=== PATIENT | female | born 1955 | race Hispanic/Latino ===

== ENCOUNTER → 2018-04-25 | Outpatient (CLI) | payer OTHER ==
--- NOTE | 2018-04-25 16:10 | Diagnostic Imaging Report ---
#[id number] - MGDXBIL #BILATERAL DIGITAL DIAGNOSTIC MAMMOGRAM WITH CAD: 04/25/2018 No prior exams were available for comparison. Current study contains 7 films. The tissue of both breasts is predominantly fatty. Current study was also evaluated with a Computer Aided Detection (CAD) system. There is an irregular high density mass measuring 4.7 cm in its greatest dimension in the left breast at 10 o'clock middle depth. This mass is palpable and underneath a palpable mass marker. In addition, enlarged high density lymph nodes in the axilla are present bilaterally-larger and more prominent on the left side. Largest on the left measures 1.8 x 2.5 cm. Largest on the right measures 1.3 x 1.6 cm. No other significant masses, calcifications, or other findings are seen in either breast. IMPRESSION: HIGHLY SUGGESTIVE OF MALIGNANCY The irregular high density mass in the left breast is highly suggestive of malignancy. An ultrasound is recommended. A phone call was made to the physician's office and the case discussed with Chio More. The patient will be contacted by the Mammography Department to schedule this appointment. Deep Prince Jr., D.O. cw/:04/25/2018 13:30:18 Court Collections Officer: Anna OREILLY)(Laci), [facility] letter sent: Biopsy Required Mammogram BI-RADS: 5 Highly suggestive of malignancy
--- NOTE | 2018-04-25 16:10 | Diagnostic Imaging Report ---
#[id number] - USBRELIMLT ULTRASOUND OF THE LEFT BREAST : 04/25/2018 Comparison is made to exam dated: 04/25/2018 mammogram - [facility]. Color flow and real-time ultrasound were performed on the left breast. -There is an irregular hypechoic mass with marked lobulations measuring 4.3 x 2.0 x 2.4 cm. This mass is highly suspicious to represent a cancer and corresponds with the palpable mass on physical exam. An ultrasound guided biopsy is recommended. -In addition, there are enlarged left axillary lymph nodes with the largest measuring 1.7 x 1.2 x 2.1 cm. IMPRESSION: HIGHLY SUGGESTIVE OF MALIGNANCY - FOLLOW-UP RECOMMENDED Irregular mass in the left breast is highly suspicious for cancer. Ultrasound guided biopsy is recommended. Case was discusse with Chio More in Dr. Vidales's office. The patient was notified of the need for a biopsy. Deep Prince Jr., D.O. cw/:04/25/2018 13:50:31 Brazing Machine Operator Automatic: CONI STRATTON, [facility] letter sent: Biopsy Required Ultrasound BI-RADS: 5 Highly suggestive of malignancy
== END ==
LOC: MAMMO 09:32
PROVIDERS: ATTEND Family Medicine
DX: N63.20 Unspecified lump in the left breast, unspecified quadrant (principal)
CPT/HCPCS: 77066

== ENCOUNTER → 2018-05-06 | Outpatient (CLI) | payer OTHER ==
--- NOTE | 2018-05-07 08:56 | Diagnostic Imaging Report ---
#[id number] - [id number] ULTRASOUND GUIDED BIOPSY: 05/06/2018 PATIENT CONSENT: According to [facility] requirements, a time out was performed, correct site was localized and the patient was consented. PROCEDURE DESCRIPTION: Using full barrier sterile technique, 1% Lidocaine local anesthesia, and real time ultrasound guidance, the mass at 11 o.clock position in the left breast was biopsied using a 14 ga core device. A total of 10 biopsies were performed. Specimens were submitted for histology. A micromarker was placed at the biopsy site for future reference. A sterile bandage was applied at the entry site. The patient was sent for a post biopsy mammogram with no immediate complications noted. Correlation is made to exams dated: 04/25/2018 ultrasound and 04/25/2018 mammogram - [facility]. IMPRESSION: ULTRASOUND GUIDED BIOPSY Follow-up with ACR/ACS guidelines. Deep anthony/rhonda:05/06/2018 12:27:43 Manufacturers Service Representative: PAGE CARRION RDMS, [facility] [id number]
--- NOTE | 2018-05-07 08:56 | Diagnostic Imaging Report ---
#[id number] - MGDXLT #UNILATERAL LEFT DIGITAL DIAGNOSTIC MAMMOGRAM: 05/06/2018 Comparison is made to exams dated: 05/06/2018 ultrasound biopsy and 04/25/2018 ultrasound - [facility]. Current study contains 2 films. The tissue of the left breast is predominantly fatty. Biopsy clip present within the high density mass. No significant masses, calcifications, or other findings are seen in the breast. IMPRESSION: HIGHLY SUGGESTIVE OF MALIGNANCY Follow-up post biopsy. Deep Prince Jr., D.O. cw/:05/06/2018 13:01:24 Measuring Clerk: Anna Cook RT(R)(M), [facility] Mammogram BI-RADS: 5 Highly suggestive of malignancy
== END ==
LOC: US 08:21
PROVIDERS: ATTEND Family Medicine
DX: N63.20 Unspecified lump in the left breast, unspecified quadrant (principal)
CPT/HCPCS: 88305; A4648

== ENCOUNTER → 2018-10-22 | Outpatient (CLI) | payer OTHER ==
--- NOTE | 2018-10-23 09:14 | Diagnostic Imaging Report ---
#[id number] - USBRECOMLT ULTRASOUND OF THE LEFT BREAST : 10/22/2018 Comparison is made to exams dated: 05/06/2018 mammogram, 05/06/2018 ultrasound biopsy and 04/25/2018 ultrasound - [facility]. Color flow and real-time ultrasound were performed on the entire left breast with scanning in all four quadrants, retroareolar region and the left axilla. -The known left breast mass/cancer at the 10-11 o'clock position shows little interval change now measuring 4.0 x 1.8 x 3.2 cm (previously measured 4.3 x 2.0 x 2.4 cm). -Lymph nodes in the left axilla measure 1.6 x 1.0 x 1.2 cm and 1.3 x 0.8 x 0.9 cm. The largest previously measured 1.7 x 1.2 x 2.1 cm. IMPRESSION: KNOWN BIOPSY PROVEN MALIGNANCY Little interval change in the size of the primary breast mass or axillary nodes. Follow-up with ACR/ACS guidelines. Deep Prince Jr., D.O. cw/:10/22/2018 13:14:42 Controller Coal [employer]: Sheng Licona RDMS, [facility] Ultrasound BI-RADS: 6 Known biopsy proven malignancy
== END ==
LOC: US 08:26
PROVIDERS: ATTEND Internal Medicine
DX: C50.212 Malignant neoplasm of upper-inner quadrant of left female breast (principal)

== ENCOUNTER 2019-05-08 15:15 | Emergency (ER) | payer OTHER ==
[~2019-05-08] VITALS: Ht 149.9 cm; Wt 87.1 kg
--- OUTSIDE RECORDS SUMMARY | 2019-05-08 15:18 | XMS REPORT | Clinical Summary ---
Author Author ИВАН [facility] Address Unknown Phone Unavailable Care Team Providers Care Manager Restaurant Name Role Phone PCP Unavailable Allergies No Known Allergies Medications End Date Status Medication Sig Dispensed Refills Start Date Active atorvastatin (LIPITOR) 10 Take 10 mg by 0 MG tablet mouth daily. Active metFORMIN (GLUCOPHAGE) Take 1,000 mg 0 1000 MG tablet by mouth 2 (two) times daily with breakfast and dinner. Active Problems Not on file Encounters Care Team Description Date Type Specialty Loyd Cisse MD Cough (Primary Dx) 04/29/2019 Outside Orders Radiology Loyd Cisse MD Cough 04/17/2019 Hospital Radiology Encounter System, Provider Not In Cough (Primary Dx) 04/17/2019 Outside Orders Radiology Loyd Cisse MD Malignant neoplasm of upper-inner quadrant of left female breast, unspecified estrogen receptor status (HCC) 04/01/2019 Hospital Cardiology Encounter Loyd Cisse MD Malignant neoplasm of upper-inner quadrant of left female breast, unspecified estrogen receptor status (HCC) 04/01/2019 Hospital Radiology Encounter Loyd Cisse MD Malignant neoplasm of upper-inner quadrant of left female breast, unspecified estrogen receptor status (HCC) (Primary Dx) 03/26/2019 Outside Orders Central Scheduling Mile Valdez MD Malignant neoplasm of female breast, unspecified estrogen receptor status, unspecified laterality, unspecified site of breast (HCC) 09/01/2018 Hospital Radiology Encounter Mile Valdez MD Malignant neoplasm of female breast, unspecified estrogen receptor status, unspecified laterality, unspecified site of breast (HCC) 09/01/2018 Hospital Radiology Encounter Mile Valdez MD Malignant neoplasm of female breast, unspecified estrogen receptor status, unspecified laterality, unspecified site of breast (HCC) (Primary Dx) 08/27/2018 Outside Orders Radiology after 05/07/2018 Social History Date Tobacco Use Types Packs/Day Years Used Never Smoker Alcohol Use Drinks/Week oz/Week Comments No Alcohol Habits Answer Date Recorded How often do you have a drink containing alcohol? Never 04/01/2019 How many drinks containing alcohol do you have on Not asked a typical day when you are drinking? How often do you have six or more drinks on one Not asked occasion? Sex Assigned at Date Recorded Not on file Industry Job Start Date Occupation Not on file Not on file Not on file Travel End Travel History Travel Start No recent travel history available. Last Filed Vital Signs Time Taken Vital Sign Reading 04/01/2019 11:52 AM CDT Blood Pressure 115/56 04/01/2019 11:52 AM CDT Pulse 79 04/01/2019 11:52 AM CDT Temperature 37 C (98.6 F) 04/01/2019 11:52 AM CDT Respiratory Rate 12 04/01/2019 11:52 AM CDT Oxygen Saturation 95% - Inhaled Oxygen - Concentration 04/01/2019 8:37 AM CDT Weight 93.4 kg (206 lb) - Height - - Body Mass Index - Plan of Treatment Not on file Procedures Comments Procedure Name Priority Date/Time Associated Diagnosis XR CHEST 2 VIEWS Routine 04/17/2019 Cough 3:25 PM CDT ECHOCARDIOGRAM REPORT - 04/01/2019 SCAN 9:23 PM CDT 2D ECHO W/ DOPPLER Routine 04/01/2019 Malignant neoplasm of (CW/PW/COLOR) 1:40 PM CDT upper-inner quadrant of left female breast, unspecified estrogen receptor status (HCC) IR CV ACCESS FLUORO Routine 04/01/2019 Malignant neoplasm of 11:29 AM CDT upper-inner quadrant of left female breast, unspecified estrogen receptor status (HCC) CBC W/PLT COUNT & AUTO Routine 04/01/2019 DIFFERENTIAL 7:53 AM CDT CBC W/PLT COUNT & AUTO Routine 04/01/2019 DIFFERENTIAL 7:53 AM CDT APTT Routine 04/01/2019 7:53 AM CDT PROTHROMBIN TIME/INR Routine 04/01/2019 7:[address] CHEST WITH IV CONTRAST Routine 09/01/2018 Malignant neoplasm of 10:55 AM ELECTROPLATING TECHNICIAN female breast, unspecified estrogen receptor status, unspecified laterality, unspecified site of breast (HCC) CT ABDOMEN/PELVIS WITH IV Routine 09/01/2018 Malignant neoplasm of CONTRAST 10:55 AM ELECTROPLATING TECHNICIAN female breast, unspecified estrogen receptor status, unspecified laterality, unspecified site of breast (HCC) POCT-CREATININE Routine 09/01/2018 10:36 AM ELECTROPLATING TECHNICIAN after 05/07/2018 Results * XR chest 2 views (04/17/2019 3:25 PM CDT) Specimen Narrative Performed At FINAL REPORT [facility] EXAM: Frontal and lateral chest radiograph HISTORY PROVIDED: R05 COMPARISON: None available IMPRESSION: There are right greater than left bibasilar opacities, pulmonary vascular congestion, and interstitial opacities which may represent multifocal pneumonia, edema, atelectasis, or a combination of these entities. Blunting of the bilateral costophrenic angle suggests a small amount of pleural fluid versus pleural thickening. The cardiac silhouette is mildly enlarged. The tip of a right IJ Port-A-Cath projects over the SVC. No acute osseous abnormality. Degenerative changes of the spine are noted. The findings were discussed with Coby Aguilar NP via phone at 4:16 PM on 04/17/2019. She told me that she has prescribed antibiotics. Short interval follow-up radiography is recommended after treatment to document improvement/resolution, which we also discussed. Signed: Halima Moe MD Report Verified Date/Time:04/17/2019 16:19:28 Reading Location: [facility] Women Procedure Note Interface, External Ris In - 04/17/2019 4:21 PM CDT FINAL REPORT EXAM: Frontal and lateral chest radiograph HISTORY PROVIDED: R05 COMPARISON: None available IMPRESSION: There are right greater than left bibasilar opacities, pulmonary vascular congestion, and interstitial opacities which may represent multifocal pneumonia, edema, atelectasis, or a combination of these entities. Blunting of the bilateral costophrenic angle suggests a small amount of pleural fluid versus pleural thickening. The cardiac silhouette is mildly enlarged. The tip of a right IJ Port-A-Cath projects over the SVC. No acute osseous abnormality. Degenerative changes of the spine are noted. The findings were discussed with Coby Aguilar NP via phone at 4:16 PM on 04/17/2019. She told me that she has prescribed antibiotics. Short interval follow-up radiography is recommended after treatment to document improvement/resolution, which we also discussed. Signed: Halima Moe MD Report Verified Date/Time: 04/17/2019 16:19:28 Reading Location: [facility] Women Performing Organization Address City/State/Zipcode Phone Number [facility] * ECHOCARDIOGRAM REPORT - SCAN (04/01/2019 9:23 PM CDT) Narrative Performed At * 2D Echo W/Doppler(CW/PW/Color) (04/01/2019 1:40 PM CDT) Ejection Fraction [facility] Specimen Narrative Performed At Transthoracic Echocardiography Report (TTE) [facility] Demographics [facility] Patient Name MARIANO LICEAELIADate of Study 04/01/2019 LIZ [id number] GenderFemale Visit Number [id number] RaceUnkno [id number] Number Number Date of Birth1955 Referring Physician Betito Whitman Age63 year(s) Research Archaeologist Tez Allen MD Fellow Sandor Mcclure MD Procedure Type of Study TTE procedure:2DECHO W DOPPLER(CW/PW/COLOR) (Routine) Indications:History of Cancer. Clinical History HGB 14.5 HCT 43.8 % HX OF LEFT BREAST CANCER Height: 53 inches Weight: 93.44 kg (206 lbs) BSA: 1.73 m^2 BMI: 51.56 kg/m^2 HR: 79 bpm BP: 115/56 mmHg Summary 1. The LV chamber size is normal. . Estimated LVEF is normal (55-60%) . 2. All LV segments contract normally. 3. Grade 1 diastolic dysfunction (impaired relaxation and low-normal LA pressure). 4. Normal RV size and systolic function. 5. Mild aortic regurgitation. 6. Unable to estimate peak systolic PA pressure; inadequate TR velocity signal. Previous Study No prior exam available for comparison. Signature Findings Left Ventricle The left ventricle is chamber size (by vol index) is normal (female - LVED vol - 29-61ml/m2). Normal LV wall thickness. Estimated LVEF by qualitative assessment is normal (55-60%) . All LV wall segments contract normally. Grade 1 diastolic dysfunction (impaired relaxation and low-normal LA pressure). Left AtriumLA size is normal by volume. Right VentricleNormal RV size and systolic function. Right Atrium RA size is normal by volume. Aortic Valve Mild aortic regurgitation. Mild AoV sclerosis without significant stenosis. Mitral Valve Normal MV structure and function. Tricuspid ValveTV structure is normal. Trace tricuspid regurgitation. Unable to estimate peak systolic PA pressure; inadequate TR velocity signal. Pulmonic Valve Normal PV structure. Trace pulmonic regurgitation. AortaAortic root size (SInus of Valsalva diameter) is normal. Proximal ascending aorta size is normal. PericardiumTrivial significant pericardial effusion is visualized. IVC/SVC/PA/PV/PleuralIVC not visualized in this study. Chambers/Structures Left Atrium LA Volume: 31.58 ml LA Area: 14.48 cm^2 LA Vol. Index: 18 ml/m^2 Left Ventricle LVIDd: 4.64 cm LVIDs: 2.59 cm LV Septum Diastolic: 1.12 cm LV PW Diastolic: 1.13 cmLV FS: 44.2 % LVEDV Palma's:77.18 ml LVESV Palma's:31.21 mlLVEDVI: 45 ml/m^2 LVEF Palma's: 59.6 %LVESVI: 18 ml/m^2 LVOT Diameter: 1.89 cm Aorta Ao Root S of Cammie.: 3.12 cmAscending Aorta: 3.52 cm Doppler/Quantitative Measurements Mitral Valve MV Peak E-Wave: 0.75 m/sMV Peak A-Wave: 1.1 m/s E/A Ratio: 0.68 Peak Gradient: 2.26 mmHg Deceleration Time: 202.9 msec MV Patrice. Peak: Tissue Doppler E' Septal Velocity: 0.08 m/sA' Septal Velocity: 0.09 m/s E' Lateral Velocity: 0.09 m/s A' Lateral Velocity: 0.1 m/s E/E': 8.25 Aortic Valve Peak Velocity: 1.78 m/sMean Velocity: 1.12 m/s Peak Gradient: 12.73 mmHgMean Gradient: 6.06 mmHg AV Area (continuity): 2.31 cm^2 AV VTI: 31.53 cm AV DVI: 0.82 LVOT Peak Velocity: 1.37 m/s Peak Gradient: 7.46 mmHg Mean Velocity: 0.76 m/s Mean Gradient: 3.02 mmHg LVOT Diameter: 1.89 cmLVOT VTI: 25.98 cm LVOT Area: 2.81 cm^2LVOT SV:72.85 ml LVOT CO: 5.76 l/min LVOT CI: 3.33 l/min/m^2 Procedure Note Interface, External Ris In - 04/01/2019 4:16 PM CDT Transthoracic Echocardiography Report (TTE) Demographics Patient Name NIRALI LICEA Date of Study 04/01/2019 HILL Gender Female Visit Number [id number] Race Unknown Room Number Number Date of 1955 Referring Physician Betito Whitman Age 63 year(s) Research Archaeologist Tez Allen MD Fellow Sandor Mcclure MD Procedure Type of Study TTE procedure:2DECHO W DOPPLER(CW/PW/COLOR) (Routine) Indications:History of Cancer. Clinical History HGB 14.5 HCT 43.8 % HX OF LEFT BREAST CANCER Height: 53 inches Weight: 93.44 kg (206 lbs) BSA: 1.73 m^2 BMI: 51.56 kg/m^2 HR: 79 bpm BP: 115/56 mmHg Summary 1. The LV chamber size is normal. . Estimated LVEF is normal (55-60%) . 2. All LV segments contract normally. 3. Grade 1 diastolic dysfunction (impaired relaxation and low-normal LA pressure). 4. Normal RV size and systolic function. 5. Mild aortic regurgitation. 6. Unable to estimate peak systolic PA pressure; inadequate TR velocity signal. Previous Study No prior exam available for comparison. Signature Findings Left Ventricle The left ventricle is chamber size (by vol index) is normal (female - LVED vol - 29-61ml/m2). Normal LV wall thickness. Estimated LVEF by qualitative assessment is normal (55-60%) . All LV wall segments contract normally. Grade 1 diastolic dysfunction (impaired relaxation and low-normal LA pressure). Left Atrium LA size is normal by volume. Right Ventricle Normal RV size and systolic function. Right Atrium RA size is normal by volume. Aortic Valve Mild aortic regurgitation. Mild AoV sclerosis without significant stenosis. Mitral Valve Normal MV structure and function. Tricuspid Valve TV structure is normal. Trace tricuspid regurgitation. Unable to estimate peak systolic PA pressure; inadequate TR velocity signal. Pulmonic Valve Normal PV structure. Trace pulmonic regurgitation. Aorta Aortic root size (SInus of Valsalva diameter) is normal. Proximal ascending aorta size is normal. Pericardium Trivial significant pericardial effusion is visualized. IVC/SVC/PA/PV/Pleural IVC not visualized in this study. Chambers/Structures Left Atrium LA Volume: 31.58 ml LA Area: 14.48 cm^2 LA Vol. Index: 18 ml/m^2 Left Ventricle LVIDd: 4.64 cm LVIDs: 2.59 cm LV Septum Diastolic: 1.12 cm LV PW Diastolic: 1.13 cm LV FS: 44.2 % LVEDV Palma's:77.18 ml LVESV Palma's:31.21 ml LVEDVI: 45 ml/m^2 LVEF Palma's: 59.6 % LVESVI: 18 ml/m^2 LVOT Diameter: 1.89 cm Aorta Ao Root S of Cammie.: 3.12 cm Ascending Aorta: 3.52 cm Doppler/Quantitative Measurements Mitral Valve MV Peak E-Wave: 0.75 m/s MV Peak A-Wave: 1.1 m/s E/A Ratio: 0.68 Peak Gradient: 2.26 mmHg Deceleration Time: 202.9 msec MV Patrice. Peak: Tissue Doppler E' Septal Velocity: 0.08 m/s A' Septal Velocity: 0.09 m/s E' Lateral Velocity: 0.09 m/s A' Lateral Velocity: 0.1 m/s E/E': 8.25 Aortic Valve Peak Velocity: 1.78 m/s Mean Velocity: 1.12 m/s Peak Gradient: 12.73 mmHg Mean Gradient: 6.06 mmHg AV Area (continuity): 2.31 cm^2 AV VTI: 31.53 cm AV DVI: 0.82 LVOT Peak Velocity: 1.37 m/s Peak Gradient: 7.46 mmHg Mean Velocity: 0.76 m/s Mean Gradient: 3.02 mmHg LVOT Diameter: 1.89 cm LVOT VTI: 25.98 cm LVOT Area: 2.81 cm^2 LVOT SV:72.85 ml LVOT CO: 5.76 l/min LVOT CI: 3.33 l/min/m^2 Performing Organization Address City/State/[facility] Phone Number [facility] CPACS * IR CV Access Fluoro (04/01/2019 11:29 AM CDT) Specimen Narrative Performed At FINAL REPORT [facility] Right internal jugular chest port insertion History: Left-sided breast cancer. Modality: Sonography and fluoroscopy. Sedation: Moderate sedation was administered. 1 mg of Versed and50 mcg of fentanyl IV was used for moderate sedation monitored under my direction. Total intra-service time of sedation [id number]. The patient's vital signs were monitored throughout the procedure and recorded in the patient's medical record by the nurse. Licensed Occupational Therapist:Ephraim Mcneil MD Net Software Developer:Jeramie Mcgowan (resident). Approach: Right internal jugular vein Estimated blood loss:< 5 cc. Specimen: None. Fluoroscopy Time: 0.5 min. Reference Air Kerma (Ka, r): 5.0 mGy. Technique: Informed written consent was obtained. Discussion of risks, benefits, and alternatives were made with the patient. The patient expressed understanding and agreed to proceed.A universal timeout was performed prior to starting the procedure.All elements maximal sterile barrier technique was utilized for this procedure, including utilization of sterile scrub solution for skin prep, a large sterile sheet to cover the areas of the patient that were not prepped, and hand hygiene, mask, head covering, and sterile gown for performing radiologist and scrub technologist. The skin was anesthetized with 2% lidocaine.Ultrasound evaluation showed a patent and compressible right internal jugular vein, which was punctured under direct real-time ultrasound guidance with a micropuncture needle.An ultrasound image was saved to PACS. A 0.018 inch wire was placed through the needle into the right atrium. A 4 Taiwanese micropuncture sheath was placed and a 0.035 wire was advanced into the IVC. A subcutaneous tunnel and pocket were created in the right anterior chest wall by blunt dissection.The pocket was flushed with antibiotic solution. A 6F Deltech port was placed within the pocket and the catheter brought through the tunnel. The catheter was cut at 24 cm. A peel-away sheath was placed in the right IJ vein and the catheter was advanced through the sheath, with its distal tip terminating in the superior right atrium. The peel-away sheath was removed. The port was flushed and aspirated easily following placement.The skin incision was closed with 3-0 Monocryl and Dermabond. The small jugular incision site was closed using Dermabond.The patient tolerated the procedure well and left the department in the same condition. Results:Spot radiograph of the chest demonstrates the new right IJ Port-A-Cath to lie in the expected position with its tip overlying the superior right atrium. Impression: Successful, uncomplicated placement of a right internal jugular chest port using sonographic and fluoroscopic guidance and conscious sedation. The port is ready for immediate use. Signed: Ephraim Mcneil MD Report Verified Date/Time:04/01/2019 17:59:06 Reading Location: [facility] [id number] Angio Body Reading Room Procedure Note Interface, External Ris In - 04/01/2019 6:01 PM CDT FINAL REPORT Right internal jugular chest port insertion History: Left-sided breast cancer. Modality: Sonography and fluoroscopy. Sedation: Moderate sedation was administered. 1 mg of Versed and 50 mcg of fentanyl IV was used for moderate sedation monitored under my direction. Total intra-service time of sedation was 30 minutes. The patient's vital signs were monitored throughout the procedure and recorded in the patient's medical record by the nurse. Licensed Occupational Therapist: Ephraim Mcneil MD Net Software Developer: Jeramie Mcgowan (resident). Approach: Right internal jugular vein Estimated blood loss: < 5 cc. Specimen: None. Fluoroscopy Time: 0.5 min. Reference Air Kerma (Ka, r): 5.0 mGy. Technique: Informed written consent was obtained. Discussion of risks, benefits, and alternatives were made with the patient. The patient expressed understanding and agreed to proceed. A universal timeout was performed prior to starting the procedure. All elements maximal sterile barrier technique was utilized for this procedure, including utilization of sterile scrub solution for skin prep, a large sterile sheet to cover the areas of the patient that were not prepped, and hand hygiene, mask, head covering, and sterile gown for performing radiologist and scrub technologist. The skin was anesthetized with 2% lidocaine. Ultrasound evaluation showed a patent and compressible right internal jugular vein, which was punctured under direct real-time ultrasound guidance with a micropuncture needle. An ultrasound image was saved to PACS. A 0.018 inch wire was placed through the needle into the right atrium. A 4 Taiwanese micropuncture sheath was placed and a 0.035 wire was advanced into the IVC. A subcutaneous tunnel and pocket were created in the right anterior chest wall by blunt dissection. The pocket was flushed with antibiotic solution. A 6F Deltech port was placed within the pocket and the catheter brought through the tunnel. The catheter was cut at 24 cm. A peel-away sheath was placed in the right IJ vein and the catheter was advanced through the sheath, with its distal tip terminating in the superior right atrium. The peel-away sheath was removed. The port was flushed and aspirated easily following placement. The skin incision was closed with 3-0 Monocryl and Dermabond. The small jugular incision site was closed using Dermabond. The patient tolerated the procedure well and left the department in the same condition. Results: Spot radiograph of the chest demonstrates the new right IJ Port-A-Cath to lie in the expected position with its tip overlying the superior right atrium. Impression: Successful, uncomplicated placement of a right internal jugular chest port using sonographic and fluoroscopic guidance and conscious sedation. The port is ready for immediate use. Signed: Ephraim Mcneil MD Report Verified Date/Time: 04/01/2019 17:59:06 Reading Location: [place] [address] Angio Body Reading Room Performing Organization Address City/State/Zipcode Phone Number [facility] * CBC with platelet count + automated diff (04/01/2019 7:53 AM CDT) WBC 7.8 3.5 - 10.5 K/L [facility] RBC 4.84 3.93 - 5.22 M/L [facility] Hemoglobin 14.5 11.2 - 15.7 GM/DL [facility] Hematocrit 43.8 34.1 - 44.9 % [facility] MCV 90.5 79.4 - 94.8 fL [facility] MCH 30.0 25.6 - 32.2 pg [facility] MCHC 33.1 32.2 - 35.5 GM/DL [facility] RDW 12.5 11.7 - 14.4 % [facility] Platelets 313 150 - 450 K/CU MM [facility] MPV 9.6 9.4 - 12.3 fL [facility] nRBC 0 0 - 0 /100 WBC [facility] % Neutros 66 % [facility] % Lymphs 25 % [facility] % Monos 7 % [facility] % Eos 1 % [facility] % Baso 0 % [facility] # Neutros 5.20 1.56 - 6.13 K/L [facility] # Lymphs 1.95 1.18 - 3.74 K/L [facility] # Monos 0.53 (H) 0.24 - 0.36 K/L [facility] # Eos 0.11 0.04 - 0.36 K/L [facility] # Baso 0.02 0.01 - 0.08 K/L [facility] Immature 0 0 - 1 % [facility] Granulocytes-[facility] Specimen Blood Performing Organization Address City/State/Zipcode Phone Number [place] [phone] * aPTT (04/01/2019 7:53 AM CDT) PTT 28.0 22.5 - 36.0 seconds [facility] Specimen Blood Performing Organization Address City/State/[place] [address] [phone] [place] [address] * Prothrombin time/INR (04/01/2019 7:53 AM CDT) Protime 16.5 (H) 11.9 - 14.2 seconds [facility] INR 1.4 <=5.9 [facility] Specimen Blood Narrative Performed At Effective 02/04/2019: PT Reference Range Change [facility] New: 11.9-14.2Previous: 11.7-14.7 [facility] RECOMMENDED COUMADIN/WARFARIN INR THERAPY RANGES STANDARD DOSE: 2.0-3.0Includes: PROPHYLAXIS for venous thrombosis, systemic embolization; TREATMENT for venous thrombosis and/or pulmonary embolus. HIGH RISK: Target INR is 2.5-3.5 for patients wiht mechanical heart valves. Performing Organization Address City/State/Zipcode Phone Number [facility] [address] [place] [address] MED[address] * CT abdomen/pelvis with IV contrast (09/01/2018 10:55 AM ELECTROPLATING TECHNICIAN) Specimen Narrative Performed At FINAL REPORT [facility] TECHNIQUE: CT of the chest, abdomen, and pelvis WITH intravenous contrast and WITH oral contrast. Dose modulation, iterative reconstruction, and/or weight-based adjustment of the mA/kV was utilized to reduce the radiation dose to as low as reasonably achievable. INDICATION: Breast cancer. COMPARISON: None. FINDINGS: LINES/TUBES: None. LUNGS AND AIRWAYS: The lungs and airways are normal without focal abnormality. PLEURA: The pleural spaces are clear. HEART AND MEDIASTINUM: The visualized thyroid gland is normal. No significant mediastinal, hilar, or axillary lymphadenopathy. A single right axillary lymph node is mildly prominent without significant fat stranding. Biopsy clip adjacent to the left axillary lymph node. The heart and pericardium are within normal limits. HEPATOBILIARY: No focal hepatic lesions. Cholelithiasis in a nondistended gallbladder. The gallbladder wall is mildly thickened. No biliary ductal dilatation. SPLEEN: No splenomegaly. PANCREAS: No focal masses or ductal dilatation. ADRENALS: No adrenal nodules. KIDNEYS/URETERS: No hydronephrosis, stones, or solid mass lesions. PELVIC ORGANS/BLADDER: The endometrium is mildly prominent a 0.8 cm. PERITONEUM/RETROPERITONEUM: No free air or fluid. Small, fat filled periumbilical hernia LYMPH NODES: No lymphadenopathy. VESSELS: Unremarkable. GI TRACT: No distention or wall thickening. The appendix is normal. BONES AND SOFT TISSUES: A left breast mass with a biopsy clip measures 4.3 cm in maximum dimension. A lucent lesion with internal striations within the right T11 vertebral body measures 2.1 cm and is most consistent with an intraosseous hemangioma. Mild degenerative changes of the visualized spine. IMPRESSION: 1.Left breast cancer without metastatic disease in the chest, abdomen, or pelvis. 2.A single right axillary lymph node is mildly prominent, a nonspecific finding. 3.Cholelithiasis without acute cholecystitis. However, due to the thick gallbladder wall, chronic cholecystitis should be considered. 4.The endometrium is mildly thickened at 0.8 cm. Further evaluation with a pelvic ultrasound is recommended. Signed: Cortez Martins MD Report Verified Date/Time:09/01/2018 13:30:00 Reading Location: [facility] C013Y CT Body Reading Room Procedure Note Interface, External Ris In - 09/01/2018 1:32 PM ELECTROPLATING TECHNICIAN FINAL REPORT TECHNIQUE: CT of the chest, abdomen, and pelvis WITH intravenous contrast and WITH oral contrast. Dose modulation, iterative reconstruction, and/or weight-based adjustment of the mA/kV was utilized to reduce the radiation dose to as low as reasonably achievable. INDICATION: Breast cancer. COMPARISON: None. FINDINGS: LINES/TUBES: None. LUNGS AND AIRWAYS: The lungs and airways are normal without focal abnormality. PLEURA: The pleural spaces are clear. HEART AND MEDIASTINUM: The visualized thyroid gland is normal. No significant mediastinal, hilar, or axillary lymphadenopathy. A single right axillary lymph node is mildly prominent without significant fat stranding. Biopsy clip adjacent to the left axillary lymph node. The heart and pericardium are within normal limits. HEPATOBILIARY: No focal hepatic lesions. Cholelithiasis in a nondistended gallbladder. The gallbladder wall is mildly thickened. No biliary ductal dilatation. SPLEEN: No splenomegaly. PANCREAS: No focal masses or ductal dilatation. ADRENALS: No adrenal nodules. KIDNEYS/URETERS: No hydronephrosis, stones, or solid mass lesions. PELVIC ORGANS/BLADDER: The endometrium is mildly prominent a 0.8 cm. PERITONEUM/RETROPERITONEUM: No free air or fluid. Small, fat filled periumbilical hernia LYMPH NODES: No lymphadenopathy. VESSELS: Unremarkable. GI TRACT: No distention or wall thickening. The appendix is normal. BONES AND SOFT TISSUES: A left breast mass with a biopsy clip measures 4.3 cm in maximum dimension. A lucent lesion with internal striations within the right T11 vertebral body measures 2.1 cm and is most consistent with an intraosseous hemangioma. Mild degenerative changes of the visualized spine. IMPRESSION: 1.Left breast cancer without metastatic disease in the chest, abdomen, or pelvis. 2.A single right axillary lymph node is mildly prominent, a nonspecific finding. 3.Cholelithiasis without acute cholecystitis. However, due to the thick gallbladder wall, chronic cholecystitis should be considered. 4.The endometrium is mildly thickened at 0.8 cm. Further evaluation with a pelvic ultrasound is recommended. Signed: Cortez Martins MD Report Verified Date/Time: 09/01/2018 13:30:00 Reading Location: [facility] B1 C013Y [address] Body Reading Room Performing Organization Address City/State/Zipcode Phone Number [employer] * CT chest with IV contrast (09/01/2018 10:55 AM ELECTROPLATING TECHNICIAN) Specimen Narrative Performed At FINAL REPORT [employer] TECHNIQUE: CT of the chest, abdomen, and pelvis WITH intravenous contrast and WITH oral contrast. Dose modulation, iterative reconstruction, and/or weight-based adjustment of the mA/kV was utilized to reduce the radiation dose to as low as reasonably achievable. INDICATION: Breast cancer. COMPARISON: None. FINDINGS: LINES/TUBES: None. LUNGS AND AIRWAYS: The lungs and airways are normal without focal abnormality. PLEURA: The pleural spaces are clear. HEART AND MEDIASTINUM: The visualized thyroid gland is normal. No significant mediastinal, hilar, or axillary lymphadenopathy. A single right axillary lymph node is mildly prominent without significant fat stranding. Biopsy clip adjacent to the left axillary lymph node. The heart and pericardium are within normal limits. HEPATOBILIARY: No focal hepatic lesions. Cholelithiasis in a nondistended gallbladder. The gallbladder wall is mildly thickened. No biliary ductal dilatation. SPLEEN: No splenomegaly. PANCREAS: No focal masses or ductal dilatation. ADRENALS: No adrenal nodules. KIDNEYS/URETERS: No hydronephrosis, stones, or solid mass lesions. PELVIC ORGANS/BLADDER: The endometrium is mildly prominent a 0.8 cm. PERITONEUM/RETROPERITONEUM: No free air or fluid. Small, fat filled periumbilical hernia LYMPH NODES: No lymphadenopathy. VESSELS: Unremarkable. GI TRACT: No distention or wall thickening. The appendix is normal. BONES AND SOFT TISSUES: A left breast mass with a biopsy clip measures 4.3 cm in maximum dimension. A lucent lesion with internal striations within the right T11 vertebral body measures 2.1 cm and is most consistent with an intraosseous hemangioma. Mild degenerative changes of the visualized spine. IMPRESSION: 1.Left breast cancer without metastatic disease in the chest, abdomen, or pelvis. 2.A single right axillary lymph node is mildly prominent, a nonspecific finding. 3.Cholelithiasis without acute cholecystitis. However, due to the thick gallbladder wall, chronic cholecystitis should be considered. 4.The endometrium is mildly thickened at 0.8 cm. Further evaluation with a pelvic ultrasound is recommended. Signed: Cortez Martins MD Report Verified Date/Time:09/01/2018 13:30:00 Reading Location: [facility] C013Y CT Body Reading Room Procedure Note Interface, External Ris In - 09/01/2018 1:32 PM ELECTROPLATING TECHNICIAN FINAL REPORT TECHNIQUE: CT of the chest, abdomen, and pelvis WITH intravenous contrast and WITH oral contrast. Dose modulation, iterative reconstruction, and/or weight-based adjustment of the mA/kV was utilized to reduce the radiation dose to as low as reasonably achievable. INDICATION: Breast cancer. COMPARISON: None. FINDINGS: LINES/TUBES: None. LUNGS AND AIRWAYS: The lungs and airways are normal without focal abnormality. PLEURA: The pleural spaces are clear. HEART AND MEDIASTINUM: The visualized thyroid gland is normal. No significant mediastinal, hilar, or axillary lymphadenopathy. A single right axillary lymph node is mildly prominent without significant fat stranding. Biopsy clip adjacent to the left axillary lymph node. The heart and pericardium are within normal limits. HEPATOBILIARY: No focal hepatic lesions. Cholelithiasis in a nondistended gallbladder. The gallbladder wall is mildly thickened. No biliary ductal dilatation. SPLEEN: No splenomegaly. PANCREAS: No focal masses or ductal dilatation. ADRENALS: No adrenal nodules. KIDNEYS/URETERS: No hydronephrosis, stones, or solid mass lesions. PELVIC ORGANS/BLADDER: The endometrium is mildly prominent a 0.8 cm. PERITONEUM/RETROPERITONEUM: No free air or fluid. Small, fat filled periumbilical hernia LYMPH NODES: No lymphadenopathy. VESSELS: Unremarkable. GI TRACT: No distention or wall thickening. The appendix is normal. BONES AND SOFT TISSUES: A left breast mass with a biopsy clip measures 4.3 cm in maximum dimension. A lucent lesion with internal striations within the right T11 vertebral body measures 2.1 cm and is most consistent with an intraosseous hemangioma. Mild degenerative changes of the visualized spine. IMPRESSION: 1.Left breast cancer without metastatic disease in the chest, abdomen, or pelvis. 2.A single right axillary lymph node is mildly prominent, a nonspecific finding. 3.Cholelithiasis without acute cholecystitis. However, due to the thick gallbladder wall, chronic cholecystitis should be considered. 4.The endometrium is mildly thickened at 0.8 cm. Further evaluation with a pelvic ultrasound is recommended. Signed: Cortez Martins MD Report Verified Date/Time: 09/01/2018 13:30:00 Reading Location: [facility] B1 C013Y CT Body Reading Room Performing Organization Address City/State/Zipcode Phone Number [facility] * POC-Creatinine (09/01/2018 10:36 AM ELECTROPLATING TECHNICIAN) POC-Creatinine 0.4 (L)Comment: TESTED AT 0.6 - 1.3 mg/dL [facility] [id number] [facility] [place] [address] POC-EGFR Comment: Insufficient clinical mL/min/1.73M2 [facility] data to calculate estimated [facility] GFR Specimen Blood Performing Organization Address City/State/Zipcode Phone Number [facility] [address] [place] [address] MEDICAL [facility]ENTER after 05/07/2018 Insurance Payer Benefit Subscriber ID Type Phone Address Plan / Group KATIE WILSON xxxxxxxxxxx [employer]
[2019-05-08] MEDS ORDERED: GLIPIZIDE5 MG PO (15:51)
[2019-05-08] MEDS ORDERED: METFORMIN HCL500 M2 PO (15:51)
[2019-05-08] MEDS ORDERED: ZOFRAN8 MG (15:51)
[2019-05-08] MEDS ORDERED: OLANZAPINE5 MG PO (15:51)
[2019-05-08] MEDS ORDERED: FUROSEMIDE40 MG PO (15:51)
[2019-05-08] MEDS ORDERED: ATORVASTATIN CA20 MG PO (15:51)
--- NOTE | 2019-05-08 16:59 | Diagnostic Imaging Report ---
Chest, 2 views, 05/08/2019. History: Cough, history of breast cancer. Comparison: None available. Findings: The cardiomediastinal silhouette and pulmonary vasculature are mildly prominent. Linear opacities are present at the lung bases. There is no focal consolidation or pleural effusion. Right IJ Port-A-Cath terminates near the cavoatrial junction. Surgical clips are present in the left breast. There are no acute osseous or soft tissue abnormalities. Impression: Mild cardiomegaly, vascular congestion, and bibasilar atelectasis. Signed by: George Rojas on 05/08/2019 4:56 PM
--- NOTE | 2019-05-08 17:06 | NUR ---
Attempted to access portacath and power port needle is too short, need at least 1.5 inch needle to access port.
--- NOTE | 2019-05-08 18:09 | Diagnostic Imaging Report ---
EXAM: Right Upper Extremity Duplex Ultrasound INDICATION: Arm swelling COMPARISON: None TECHNIQUE: Grayscale, color Doppler and spectral waveform analysis of the right upper extremity venous system and internal jugular vein were performed. FINDINGS: Internal Jugular: Suboptimal evaluation due to adjacent port and catheter. Subclavian: Suboptimal evaluation due to adjacent port and catheter. Axillary: Fully compressible with normal spontaneous waveforms Brachial: Fully compressible with normal spontaneous waveforms Basilic: Fully compressible with normal spontaneous waveforms Cephalic: Fully compressible with normal spontaneous waveforms IMPRESSION: No evidence of venous thrombosis of the right upper extremity. Signed by: Dr. Isaiah Lares M.D. on 05/08/2019 6:06 PM
[2019-05-08] MEDS ORDERED: SODIUM CHLORIDE 0.9% 50ML 50 ML ONE (18:14)
[2019-05-08] MEDS ORDERED: IOPAMIDOL 370 MG/ML 200 ML INFUS..BTL INJ ONE (18:14)
[2019-05-08 18:15] LABS: INR 1.14; PROTHROMBIN TIME 15.2 seconds (11.9-14.5)
[2019-05-08 18:16] LABS: PARTIAL THROMBOPLASTIN TIME 31.6 seconds (23.8-35.5)
--- NOTE | 2019-05-08 19:07 | NUR ---
Report to GRACIELA Sams
--- NOTE | 2019-05-08 19:22 | Diagnostic Imaging Report ---
EXAM: CT Chest WITH contrast 05/08/2019 12:00 AM INDICATION: Arm swelling COMPARISON: None TECHNIQUE: Chest was scanned utilizing a multidetector helical scanner from the lung apex through the level of the diaphragm after administration of IV contrast. Thin section reconstructions were obtained with special concentration on the pulmonary arteries. Coronal and sagittal reformations were obtained. Pulmonary embolism protocol was performed. Dose modulation, iterative reconstruction, and/or weight based adjustment of the mA/kV was utilized to reduce the radiation dose to as low as reasonably achievable IV CONTRAST: 100 cc Isovue-370 RADIATION DOSE: Total DLP: 445.79 mGy*cm Estimated effective dose: (DLP x 0.014 x size factor) mSv COMPLICATIONS: None FINDINGS: LINES/ TUBES: Right chest port. Catheter tip extends near the cavoatrial junction and upper right atrium, precise position obscured by motion artifact. LUNGS AND AIRWAYS: No filling defect is identified within the pulmonary arteries to the segmental level. There is groundglass opacity in the right middle lobe, likely reflecting atelectasis. There is mild centrilobular emphysema. Trachea and main bronchi are clear. PLEURA: The pleural spaces are clear. HEART AND MEDIASTINUM: 7 mm low density nodule in the right thyroid lobe. There is extensive mediastinal adenopathy with pretracheal nodes measuring 1.1 to 1.3 cm, precarinal node measuring 1.6 cm, subcarinal node measuring 1.4 cm, right hilar node measuring 1.4 cm and left hilar node measuring 1.2 cm. Prevascular nodes measure up to 1.1 cm. The heart is normal in size.. There is no pericardial effusion. The thoracic aorta is atherosclerotic with no aneurysm or dissection. There are scattered calcified plaques. Ascending aorta measures 3.7 cm, main pulmonary artery 2.9 cm, normal. UPPER ABDOMEN: Included portions of the liver unremarkable. There is ill-defined partially visualized hypodensity in the gallbladder fossa which may represent a thickened gallbladder wall. Included portions of the spleen, pancreas, adrenals and kidneys show no focal pathology. BONES: There is a sclerotic focus in the L1 vertebral body measuring 0.7 cm (image [id number]). There is a vertebral body hemangioma at L2. SOFT TISSUES: Superficial surrounding soft tissue shows surgical clips in the left axilla. There is fat stranding in the right axilla which may be postsurgical. A 1.1 cm lymph node is seen in the right axilla. IMPRESSION: 1. No CT evidence for acute pulmonary embolism. No dilatation of the main pulmonary artery. No aneurysm or dissection of the thoracic aorta. 2. Moderate mediastinal adenopathy is noted. Findings are suspicious for metastatic disease. 3. There is a 7 mm sclerotic focus in the L1 vertebral body suspicious for blastic bony metastasis. 4. Fat stranding in the right axilla which may be postoperative. If there is not been recent surgery then inflammatory process or cellulitis is a consideration. 5. Groundglass opacity in the right middle lobe, likely due to atelectasis although atypical infection may be a consideration in the proper clinical setting. 6. The gallbladder is incompletely visualized. There may be gallbladder wall thickening. Staff: Arnaud Signed by: Dr. Isaiah Lares M.D. on 05/08/2019 7:18 PM
[2019-05-08 19:24] LABS: BASOPHILS % 1.7 % (0.0-1.0); EOSINOPHILS % 0.9 % (0.0-6.0); HEMATOCRIT 30.4 % (34.2-44.1); HEMOGLOBIN 10.6 g/dL (12.0-16.0); LYMPHOCYTES # (AUTO) 0.7 (1.0-3.2); LYMPHOCYTES % 57.3 % (18.0-39.1); MEAN CORPUSCULAR HEMOGLOBIN 30.9 pg (28-32); MEAN CORPUSCULAR HGB CONC 34.9 g/dL (31-35); MEAN CORPUSCULAR VOLUME 88.6 fL (81-99); MONOCYTES # (AUTO) 0.3 (0.2-0.8); MONOCYTES % 23.1 % (4.4-11.3); NEUTROPHILS # (AUTO) 0.2 (2.1-6.9); NEUTROPHILS % 15.3 % (38.7-80.0); PLATELET COUNT 214 x10e3/uL (140-360); RED BLOOD COUNT 3.43 x10e6/uL (3.6-5.1); RED CELL DISTRIBUTION WIDTH 14.5 % (11.7-14.4)
[2019-05-08] MEDS ORDERED: KEFLEX500 MG PO (19:34)
--- NOTE | 2019-05-08 19:34 | NUR ---
LAB FROM [facility] CALLED TO REPORT WBC OF 1.17 MD NOTIFIED.
[2019-05-08 21:12] VITALS: BP 111/63
== END 2019-05-08 20:05 | disposition home or self-care (01) ==
LOC: FSED 15:15
DX: M79.621 Pain in right upper arm (principal); M79.89 Other specified soft tissue disorders; D70.1 Agranulocytosis secondary to cancer chemotherapy; C50.919 Malignant neoplasm of unspecified site of unspecified female breast
CPT/HCPCS: 36415; 71046; 71260; 80053; 83880; 84484; 85025; 85379; 85610; 85730; 93005; 93971; 99284; Q9967